=== PATIENT | male | born 1980 | race Caucasian/White ===

== ENCOUNTER 2020-12-22 18:14 | Observation (INO) ==
[2020-12-22] MEDS ORDERED: CYCLOBENZAPRINE HCL 10 MG TAB PO STA (20:20)
[2020-12-22] MEDS ORDERED: oxyCODONE HCL IR 5 MG TAB (IMMEDIATE RELEASE) PO STA (20:20)
--- NOTE | 2020-12-22 20:34 | Emergency Department Note ---
Impression & Plan Lumbar radiculopathy, Central stenosis of spinal canal ED Provider Note CHIEF COMPLAINT: Lower back pain HISTORY OF PRESENT ILLNESS: Michael Basilio is a 40 year old male with no significant past medical history who presents to the Emergency Department for evaluation of severe pain to his lower back which came on suddenly when he attempted to get up from bed around 1500 this afternoon. Prior to the time of onset today, the patient had gone for a 2 mile walk and then drove back to his house. He is unsure if he may have pulled a muscle while attempting to get out of his car but he denies suffering any other injuries or recent falls that may have lead to his symptoms. After the patient had laid down to rest and attempted to get back up to go to the bathroom, he suddenly developed the severe pain to his lower back which made him fall to the floor. The patient was unable to get up on his own secondary to his pain. His mother was home and placed a lidocaine patch on his back with minimal relief. As he was still unable to move, EMS was called and lifted him off the floor onto the litter and brought him to the ED for further evaluation. Currently, he rates his discomfort as a 10/10 which worsens with attempts of movement. He has not taken any medications other than the lidocaine patch. He denies pain radiating into his groin, buttocks or legs. He also denies numbness/tingling or weakness. He denies loss of continence of his bowels or bladder and he has been able to urinate without difficulty since his symptoms started. He denies any other acute complaints or pain to his head, neck, chest, abdomen, pelvis, upper back, BUE or BLE. REVIEW OF SYSTEMS: 10 systems were reviewed and were negative unless otherwise stated in HPI as above PHYSICAL EXAM: VITALS: Vitals are noted on the nurse's note and reviewed by myself. Vital signs stable. General: Laying flat in bed, appears uncomfortable Head: Normocephalic/atraumatic Neck: No mid-line cervical tenderness, ROM intact Resp: Good inspiratory effort on room air, lung sounds clear bilaterally CV: Mildly tachycardic rate, regular rhythm, peripheral pulses palpated Back: Thoracic spine non-tender, tender to palpation over the midline lumbar spine with mild edema, no obvious step-offs or deformities Abd: Soft, non-tender to palpation MSK: Holding legs in flexed position as extension exacerbates his pain, ROM intact but limited secondary to back pain. BLE Non-tender to palpation. Moving BUE without apparent pain or difficulty with strength 5/5 throughout, sensation intact throughout. Neuro: Awake, alert, interacting and answering questions appropriately Differential diagnosis includes muscular strain, fracture, metastatic disease, disc herniation, sciatica, epidural abscess, vertebral osteomyelitis, discitis, spinal epidural hematoma, cord compression, cauda equina/conus medullaris syndrome as well as others were entertained. EMERGENCY DEPARTMENT COURSE: Physical exam and history were performed. Nursing notes, EMR, and medication list were personally reviewed. Patient appears to have a sudden onset of severe pain to his lower back as described above. He was offered pain medication and was given a dose of oxycodone 10 mg and Flexeril 10 mg. CAT scan of the lumbar spine was obtained and reviewed by radiologist and myself as below. This was negative for acute lumbar spine fracture or subluxation. It did show mild disc space narrowing at L4-L5 with probable disc bulge as well as suspected central canal stenosis at L4-L5 likely moderate in degree. Upon reevaluation, the patient appeared to be in more significant pain since returning back from the CAT scan despite taking the oxycodone and Flexeril. He was then given a dose of IV Dilaudid 1 mg and IV Solu-Medrol 20 mg. I discussed the results of the CAT scan with him at bedside and then allowed him to rest to see if the additional medications would provide some relief. The patient was reevaluated and did appear to be resting more comfortably, however he was still having pain and had not yet been able to sit up or move at all from the prone position. After some time, he was given an additional dose of IV Dilaudid 1 mg, however he still continued with pain and was not able to get up from bed secondary to this. I did discuss this with my attending, Dr. Leiva and contacted the [facility] hospitalist group who agreed to evaluate the patient for ongoing management given his intractable back pain. The patient verbalizes understanding and agreement with the treatment plan. The chart was completed utilizing [employer] Voice Recognition Software. Grammatical errors, random word insertions, pronoun errors, and incomplete sentences are an occasional consequence of this system due to software limitations, ambient noise, and hardware issues. Any formal questions or concerns about the content, text, or information contained within the body of this dictation should be directly addressed to the provider for clarification. Past Med/Surg History Medical History (Updated 12/23/20 @ 02:39 by Reema Cordova MD) No significant medical problems Strabismus Surgical History (Updated 12/23/20 @ 02:32 by Moira Castillo PA-C) History of strabismus surgery Social History (Updated 12/23/20 @ 02:32 by Moira Castillo PA-C) Smoking Status: Never smoker Hx Alcohol Use: Yes Hx Substance Use: No Preferred Language: Portuguese Communication Ability: Effective Biometrics Head Required: No Beliefs That Will Affect Care: None Feels Safe at Home: Yes Safety Concerns: Feels Safe At This Time Assistive Devices: Glasses Allergies Allergies Allergy/AdvReac Type Severity Reaction Status Date / Time ibuprofen Allergy Intermediate Hives Verified 12/22/20 20:28 Home Meds Home Medications Medication Instructions Recorded Confirmed Vitamin Suppliment 1 tab PO DAILY 12/22/20 12/22/20 finasteride 1 mg tablet 1 mg PO DAILY 12/22/20 12/22/20 Results & Data (ED) Vital Signs Vital Signs - 24 hr 12/22/20 18:36 12/22/20 19:48 12/22/20 21:00 Temperature 37.0 C Temperature Source Oral Pulse Rate 111 H Pulse Rate [Finger] 90 106 H Pulse Rate from SpO2 Sensor Respiratory Rate 20 20 12 Respiratory Effort / Characteristics Non-Labored Respiratory Depth Normal Blood Pressure 135/78 Blood Pressure [Left Arm] 128/84 121/77 Blood Pressure Mean 97 Blood Pressure Mean [Left Arm] 98 91 Blood Pressure Position Sitting Pulse Oximetry 96 96 92 Oxygen Delivery Method Room Air Room Air Oxygen Flow Rate Sepsis Recent Fever Within 48 Hours No Sepsis New/Unexplained Change in Mental Status N/A Sepsis Action Taken by Nursing No Action Required 12/22/20 22:00 12/22/20 23:00 12/22/20 23:30 Temperature Temperature Source Pulse Rate 87 91 H Pulse Rate [Finger] 87 Pulse Rate from SpO2 Sensor 90 90 Respiratory Rate 13 16 15 Respiratory Effort / Characteristics Respiratory Depth Normal Blood Pressure 130/82 Blood Pressure [Left Arm] 114/71 Blood Pressure Mean 98 Blood Pressure Mean [Left Arm] 85 Blood Pressure Position Pulse Oximetry 95 95 89 L Oxygen Delivery Method Nasal Cannula Nasal Cannula Room Air Oxygen Flow Rate 2 2 Sepsis Recent Fever Within 48 Hours Sepsis New/Unexplained Change in Mental Status Sepsis Action Taken by Nursing 12/23/20 00:00 12/23/20 00:30 Temperature Temperature Source Pulse Rate 83 103 H Pulse Rate [Finger] Pulse Rate from SpO2 Sensor 86 101 H Respiratory Rate 17 21 Respiratory Effort / Characteristics Respiratory Depth Blood Pressure 138/80 132/88 Blood Pressure [Left Arm] Blood Pressure Mean 99 102 Blood Pressure Mean [Left Arm] Blood Pressure Position Pulse Oximetry 95 96 Oxygen Delivery Method Nasal Cannula Nasal Cannula Oxygen Flow Rate 2 2 Sepsis Recent Fever Within 48 Hours Sepsis New/Unexplained Change in Mental Status Sepsis Action Taken by Nursing Laboratory Data Result diagrams: 12/23/20 00:41 12/23/20 00:41 Lab Results 12/23/20 12/23/20 Range/Units 00:10 00:10 COVID-19 Eval Order Covid19 at [facility] SARS-CoV-2 (PCR) NEGATIVE (Negative) Administered Medications Enoxaparin Sodium (Enoxaparin Inj 40 Mg/0.4 Ml Syr) 40 mg SQ QAM ON LICENSE OF [facility] Stop: 01/22/21 08:59 Last Admin: 12/23/20 10:04 Dose: 40 mg Documented by: [id number] Sodium Chloride (Nss 1000ml) 1,000 mls @ 115 mls/hr IV .[id number] ON LICENSE OF [facility] Stop: 12/23/20 20:55 Last Admin: 12/23/20 04:53 Dose: 115 mls/hr Documented by: [id number] Acetaminophen (Ofirmev) 1,000 mg in 100 mls @ 400 mls/hr IV Q8H ON LICENSE OF [facility] Stop: 12/26/20 04:59 Last Infusion: 12/23/20 05:18 Dose: 0 mls/hr Documented by: [id number] Admin: 12/23/20 04:53 Dose: 400 mls/hr Documented by: [id number] Miscellaneous (Finasteride 1mg: Order Awaiting Action) 1 ea N/A QS ON LICENSE OF [facility] Stop: 01/22/21 07:59 Last Admin: 12/23/20 08:35 Dose: Not Given Documented by: [id number] Oxycodone HCl (Oxycodone Hcl Ir 5 Mg Tab (Immediate Release)) 5 mg PO Q4H PRN PRN Reason: MODERATE Pain (4,5,6) Stop: 01/06/21 03:31 Last Admin: 12/23/20 08:52 Dose: 5 mg Documented by: [id number] Discontinued Medications Cyclobenzaprine HCl (Cyclobenzaprine Hcl 10 Mg Tab) 10 mg PO NOW STA Stop: 12/22/20 20:21 Last Admin: 12/22/20 20:31 Dose: 10 mg Documented by: [id number] Hydromorphone HCl (Hydromorphone Inj 1 Mg/Ml Syringe) 1 mg IV NOW STA Stop: 12/22/20 21:38 Last Admin: 12/22/20 21:49 Dose: 1 mg Documented by: [id number] Hydromorphone HCl (Hydromorphone Inj 1 Mg/Ml Syringe) 1 mg IV NOW STA Stop: 12/22/20 23:03 Last Admin: 12/22/20 23:23 Dose: 1 mg Documented by: [id number] Dexamethasone 6 mg/ Syringe 1.5 mls @ 1 mls/min IV ONE ONE Stop: 12/23/20 00:42 Last Admin: 12/23/20 01:37 Dose: 1 mls/min Documented by: [id number] Methylprednisolone (Methylprednisolone 40 Mg/Ml Vial) 20 mg IV NOW STA Stop: 12/22/20 21:38 Last Admin: 12/22/20 21:59 Dose: 20 mg Documented by: [id number] Oxycodone HCl (Oxycodone Hcl Ir 5 Mg Tab (Immediate Release)) 10 mg PO NOW STA Stop: 12/22/20 20:21 Last Admin: 12/22/20 20:31 Dose: 10 mg Documented by: [id number] Imaging Data Radiologist's Impression: Lumbar Spine CT 12/22/20 20:20 CT lumbar spine wo con CLINICAL HISTORY: severe pain to mid lumbar spine COMPARISON STUDY: No previous studies for comparison. TECHNIQUE: Axial images of the lumbar spine were obtained without IV contrast. Sagittal and coronal reconstructions were viewed. Automated exposure control was utilized for the study. A dose lowering technique was utilized adhering to the principles of ALARA. FINDINGS: For purposes of numbering on this exam, the L5-S1 disc space is assigned to axial image 323 of 395. Alignment of the lumbar spine is anatomic. Vertebral body heights are maintained. There is no fracture. No osseous lesion is noted. Facet joints are intact. This exam is mildly compromised by motion artifact. Paravertebral soft tissues are unremarkable. There is mild disc space narrowing at L4-L5. The central canal and neural foramen are suboptimally assessed by CT. However, there is suspected central canal stenosis at L4-L5, likely moderate in degree. There is also narrowing of the lateral recesses at this level. Mild disc bulge L5-S1 is noted. IMPRESSION: 1. No acute lumbar spine fracture or subluxation. 2. Mild disc space narrowing at L4-L5 with probable disc bulge. Mild multilevel facet arthrosis. Suboptimal evaluation of the central canal and neural foramen given CT technique however suspected central canal stenosis at L4-L5, likely moderate in degree. MRI of the lumbar spine could be obtained for further evaluation. ACT 112: Negative or not required by law. Electronically signed by: Osvaldo Alvarez M.D. 12/22/2020 9:23 PM Discharge Plan Visit Data Chief Complaint: Back Injury/Pain ED Provider: Josué Leiva ED Midlevel Provider: Moira Castillo Discharge Problem: Lumbar radiculopathy, Central stenosis of spinal canal Patient Disposition: Admitted As Inpatient Discharge Instructions Interventions: ED Discharge Assessment Last Done: 12/23/20 02:00
--- NOTE | 2020-12-22 21:24 | CT Scan Report ---
CT lumbar spine wo con CLINICAL HISTORY: severe pain to mid lumbar spine COMPARISON STUDY: No previous studies for comparison. TECHNIQUE: Axial images of the lumbar spine were obtained without IV contrast. Sagittal and coronal r econstructions were viewed. Automated exposure control was utilized for the study. A dose lowering t echnique was utilized adhering to the principles of ALARA. FINDINGS: For purposes of numbering on this exam, the L5-S1 disc space is assigned to axial image 323 of 395. Alignment of the lumbar spine is anatomic. Vertebral body heights are maintained. There is n o fracture. No osseous lesion is noted. Facet joints are intact. This exam is mildly compromised by m otion artifact. Paravertebral soft tissues are unremarkable. There is mild disc space narrowing at L4 -L5. The central canal and neural foramen are suboptimally assessed by CT. However, there is suspecte d central canal stenosis at L4-L5, likely moderate in degree. There is also narrowing of the lateral recesses at this level. Mild disc bulge L5-S1 is noted. IMPRESSION: 1. No acute lumbar spine fracture or subluxation. 2. Mild disc space narrowing at L4-L5 with probable disc bulge. Mild multilevel facet arthrosis. Subo ptimal evaluation of the central canal and neural foramen given CT technique however suspected centra l canal stenosis at L4-L5, likely moderate in degree. MRI of the lumbar spine could be obtained for samantha garza evaluation. ACT 112: Negative or not required by law. Electronically signed by: Osvaldo Alvarez M.D. 12/22/2020 9:23 PM
[2020-12-22] MEDS ORDERED: HYDROmorphone INJ 1 MG/ML SYRINGE IV STA ×2 (21:37→23:02)
[2020-12-23] MEDS ORDERED: dexAMETHasone 6 MG in SYRINGE 0 ML IV ONE (00:41)
[2020-12-23 00:55] LABS: Basophils # (auto) 0.03 K/uL (0-0.2); Basophils % (auto) 0.2 %; Hematocrit (blood only) 44.8 % (42-52); Hemoglobin 16.2 g/dL (14.0-18.0); Immature Granulocytes # (auto) 0.01 K/uL (0.00-0.02); Immature Granulocytes % (auto) 0.1 %; Lymphocytes # (auto) 1.28 K/uL (1.2-3.4); Lymphocytes % (auto) 9.8 %; Mean Corpuscular Hemoglobin 32.1 pg (25-34); Mean Corpuscular Hgb Conc 36.2 g/dL (32-36); Mean Corpuscular Volume 88.7 fL (80-100); Mean Platelet Volume 10.6 fL (7.4-10.4); Monocytes # (auto) 0.06 K/uL (0.11-0.59); Monocytes % (auto) 0.5 %; Neutrophils # (auto) 11.68 K/uL (1.4-6.5); Neutrophils % (auto) 89.4 %; Platelet Count 293 K/uL (130-400); RDW Coefficient of Variation 12.6 % (11.5-14.5); RDW Standard Deviation 39.9 fL (36.4-46.3); Red Blood Count 5.05 M/uL (4.7-6.1); White Blood Count 13.06 K/uL (4.8-10.8)
--- NOTE | 2020-12-23 00:58 | History & Physical Report ---
Date of Service December 23, 2020 Assessment & Plan (1) Lumbar back pain: Plan: Mr. Basilio is an otherwise healthy 40 yo M here who came in for evaluation of sudden onset low back pain. - CT of L spine showing mild disc space narrowing at the L4-L5 level with probab le disc bulge; suspected moderate central canal stenosis; mild multilevel facet arthropathy. - L spine MRI ordered - Ortho spine consult placed - Decadron 6mg IV ordered on admission; continue 4mg IV q8 thereafter - cyclobenzaprine given in ED - Pain regimen: scheduled tylenol IV 1000mg q8; Oxycodone or Morphine prn for moderate pain, Dilaudid for severe pain (2) Leukocytosis: Plan: - WBC to 13 - etiology unclear: infectious vs. reactive - UA neg. COVID 19 neg. 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 Basilio is a 40 yo otherwise healthy male who presented to the [facility] ED for sudden onset low back pain. This morning he felt a sharp pain in the middle of his low back after getting out of his vehicle. He does have a car that sits low to the ground. The pain then improved - he was able to walk 2 miles across campus without too much trouble. When he went to have a bowel movement later in the afternoon, the pain came so unbearable he collapsed in the restroom. The pain is located centrally - ie not on either side of the spine. It does not radiate to the buttock or down either leg. He denies any weakness or numbness in either leg. No urine or fecal incontinence/retention. Nothing like this has never happened to him before - no previous injuries or surgeries to the low back. In the ED, he was was afebrile with normal vitals. WBC was elevated to 13 with neutrophil predominance. Coags WNL. CMP normal. T-bili 1.2, direct 0.2. UA benign. A cat scan of the lumbar spine was ordered, which showed mild disc space narrowing at the L4-L5 level with probable disc bulge; suspected moderate central canal stenosis; mild multilevel facet arthropathy. He was given cyclobenzaprine 10mg, oxycodone 10mg, methylprednisolone 20mg IV, and Dilaudid 2mg IV. Allergies Allergy/AdvReac Type Severity Reaction Status Date / Time ibuprofen Allergy Intermediate Hives Verified 12/22/20 20:28 Home Medications Medication Instructions Recorded Confirmed Type Vitamin Suppliment 1 tab PO DAILY 12/22/20 12/22/20 History finasteride 1 mg tablet 1 mg PO DAILY 12/22/20 12/22/20 History cyclobenzaprine 10 mg tablet 10 mg PO HS PRN #7 tab 12/23/20 Rx naproxen 500 mg tablet 500 mg PO BID PRN #20 tab 12/23/20 Rx Past Med/Surg History Medical History (Updated 12/23/20 @ 13:58 by Tod Augustin DO) No significant medical problems Strabismus Surgical History (Updated 12/23/20 @ 02:32 by Moira Castillo PA-C) History of strabismus surgery Social History (Updated 12/23/20 @ 02:32 by Moira Castillo PA-C) Smoking Status: Never smoker Hx Alcohol Use: Yes Hx Substance Use: No Preferred Language: Romansh Communication Ability: Effective Senior Electronics Engineer Required: No Beliefs That Will Affect Care: None Feels Safe at Home: Yes Safety Concerns: Feels Safe At This Time Assistive Devices: Glasses Physical Exam Constitutional: WD/WN, vitals as above + acute distress and cooperative Eyes: + anicteric sclerae ENMT: external ear and nose normal, oropharynx normal Neck: trachea midline Respiratory: normal respiratory effort, lungs clear to auscultation Cardiovascular: RRR, no murmur, no edema Heart Sounds: normal S1 and normal S2 Gastrointestinal (Abdomen): normal bowel sounds, soft, nontender, no hepatosplenomegaly Musculoskeletal: Patient laying flat on exam - he was unable to roll over or sit up for me to examine his back (secondary to pain). He had no saddle anesthesia. He was able to raise both his legs without radicular symptoms Skin: no rashes, warm and dry Neurologic: moves all extremities; no focal motor deficits Motor/Sensory: no sensory deficit Psychiatric: A+Ox3, euthymic affect Results & Data Results & Data ([place]) Vital Signs (Past 12 Hours) Vital Signs Temp Pulse Pulse Resp BP BP Pulse Ox 12/23/20 00:30 103 H 21 132/88 96 12/23/20 00:00 83 17 138/80 95 12/22/20 23:30 91 H 15 89 L 12/22/20 23:00 87 16 130/82 95 12/22/20 22:00 87 13 114/71 95 12/22/20 21:00 106 H 12 121/77 92 12/22/20 19:48 90 20 128/84 96 12/22/20 18:36 37.0 C 111 H 20 135/78 96 Supervising Physician Co-Signing Physician Notes Attending addendum: I have physically seen this patient, have supervised the medical residents activities, and agree with the H&P unless as otherwise noted. Assessment and Plan: Intractable low back pain/L4-5 disc herniation/moderate central canal stenosis/mild multilevel facet arthropathy- As noted on CT Order MRI L-spine Decadron 6 mg IV now then 4 mg IV every 8 hours Cyclobenzaprine given in ED- Acetaminophen 1 g IV every 8 hours as needed mild pain or fever Oxycodone 5 mg p.o. every 6 hours as needed moderate pain Morphine 4 mg IV every 3 hours as needed moderate pain Dilaudid 0.25 mg IV every 3 hours as needed severe pain Consult orthopedic spine surgery Remaining orders and notations as noted Resident Activity Tracking Resident Involvement: Resident Care Provided Care Provided: Adult Hospital Medicine
[2020-12-23 01:06] LABS: INR 1.1 (0.9-1.1); Partial Thromboplastin Ratio 1.1; Partial Thromboplastin Time 28.9 Seconds (21.0-31.0); Prothrombin Time 10.9 Seconds (9.0-12.0)
[2020-12-23 01:15] LABS: Albumin Level 4.2 gm/dl (3.4-5.0); BUN Creatinine Ratio 12.4 (10-20); Bilirubin Direct 0.2 mg/dl (0-0.2); Calcium 9.3 mg/dl (8.5-10.1); Creatinine Clr Calc Pharmacy 111.1 ml/min; Est GFR (African American) 102.4 ml/min; Est GFR (Non-African American) 88.4 ml/min
[2020-12-23 01:17] LABS: Bilirubin,Total 1.2 mg/dl (0.2-1); Globulin 4.1 gm/dl (2.5-4.0); Total Protein 8.3 gm/dl (6.4-8.2)
[2020-12-23 01:58] LABS: Appearance Urine Clear (Clear); Bilirubin Urine Negative (Negative); Blood Urine Negative (Negative); Color Urine Dark Yellow; Glucose Urine UA Negative (Negative); Ketones Urine 1+ (Negative); Leukocyte Esterase Urine Negative (Negative); Nitrite Urine Negative (Negative); Protein Urine Negative (Negative); Specific Gravity Urine 1.025 (1.000-1.030); Urobilinogen Urine Negative (Negative); pH Urine 7.5 (4.5-7.5)
[2020-12-23] MEDS ORDERED: ONDANSETRON INJ 2 MG/ML 2 ML VIAL IV PRN (03:32)
[2020-12-23] MEDS ORDERED: HYDROmorphone INJ 1 MG/ML SYRINGE IV PRN (03:32)
[2020-12-23] MEDS ORDERED: MoRPHine SULFATE 2 MG/ML CARP IV PRN (03:32)
[2020-12-23] MEDS ORDERED: oxyCODONE HCL IR 5 MG TAB (IMMEDIATE RELEASE) PO PRN (03:32)
[2020-12-23] MEDS ORDERED: FLUARIX QUADRIVALENT 0.5 ML SYR IM ONE (04:16)
[2020-12-23] MEDS: ACETAMINOPHEN 1,000 MG/100 ML VIAL IV SCH ×2 (04:53→13:46)
[2020-12-23] MEDS: SODIUM CHLORIDE 0.9% 1000ML 1,000 ML IV SCH ×2 (04:53→13:46)
[2020-12-23] MEDS: oxyCODONE HCL IR 5 MG TAB (IMMEDIATE RELEASE) PO PRN (08:52)
--- NOTE | 2020-12-23 09:41 | Magnetic Resonance Report ---
LUMBAR SPINE MRI HISTORY: low back pain, concern for disc herniation TECHNIQUE: Multiplanar multisequence MRI of the lumbar spine was performed without the use of contras t. COMPARISON: Lumbar spine CT 12/22/2020. FINDINGS: For the purpose of the report the L5-S1 disc space will be located on axial image of . No fracture or subluxation within the lumbar spine. Normal marrow signal intensity seen throughout th e visualized osseous structures. Moderate disc space narrowing at L4-5. The conus terminates at the L 1 level. Paravertebral soft tissues are unremarkable. Mild facet degenerative changes at L4-5 and L5- S1. L1-L2: No significant central canal or neural foraminal narrowing. L2-L3: No significant central canal or neural foraminal narrowing. L3-L4: No significant central canal or neural foraminal narrowing. L4-L5: Broad-based posterior disc protrusion with ligamentum and facet hypertrophy resulting in moder ate central canal narrowing. No significant neural foraminal narrowing. The disc protrusion abuts the bilateral transiting L5 nerve roots. L5-S1: No significant central canal or neural foraminal narrowing. IMPRESSION: Broad-based posterior disc protrusion at L4-5 resulting in moderate central canal narrowing. ACT 112: Negative or not required by law. Electronically signed by: James Nick M.D. 12/23/2020 9:40 AM
[2020-12-23] MEDS ORDERED: dexAMETHasone 4 MG in SYRINGE 0 ML IV SCH (10:00)
[2020-12-23] MEDS: ENOXAPARIN INJ 40 MG/0.4 ML SYR SQ SCH (10:04)
--- NOTE | 2020-12-23 11:37 | Hospitalist Progress Note ---
Date of Service December 23, 2020 Assessment & Plan Admission and Anticipated Discharge Date Admission Date: December 23, 2020 Results & Data Results & Data ([facility]) Vital Signs (Past 12 Hours) Vital Signs Temp Pulse Pulse Resp BP BP Pulse Ox 12/23/20 08:00 37 C 110 H 16 160/93 H 97 12/23/20 04:10 36.7 C 92 H 18 126/78 98 12/23/20 04:00 16 126/78 95 12/23/20 02:17 16 137/79 95 12/23/20 00:30 103 H 21 132/88 96 12/23/20 00:00 83 17 138/80 95
--- NOTE | 2020-12-23 13:59 | Discharge Summary ---
Date of Service December 23, 2020 Admission HPI Per Admitting Provider Mr. Basilio is a 40 yo otherwise healthy male who presented to the [facility] ED for sudden onset low back pain. This morning he felt a sharp pain in the middle of his low back after getting out of his vehicle. He does have a car that sits low to the ground. The pain then improved - he was able to walk 2 miles across campus without too much trouble. When he went to have a bowel movement later in the afternoon, the pain came so unbearable he collapsed in the restroom. The pain is located centrally - ie not on either side of the spine. It does not radiate to the buttock or down either leg. He denies any weakness or numbness in either leg. No urine or fecal incontinence/retention. Nothing like this has never happened to him before - no previous injuries or surgeries to the low back. In the ED, he was was afebrile with normal vitals. WBC was elevated to 13 with neutrophil predominance. Coags WNL. CMP normal. T-bili 1.2, direct 0.2. UA benign. A cat scan of the lumbar spine was ordered, which showed mild disc space narrowing at the L4-L5 level with probable disc bulge; suspected moderate central canal stenosis; mild multilevel facet arthropathy. He was given cyclobenzaprine 10mg, oxycodone 10mg, methylprednisolone 20mg IV, and Dilaudid 2mg IV. Principal Diagnosis Biomechanical low back pain, incidentally noted L4-5 disc disease Discharge Exam In general he is awake and alert pleasant no distress. HEENT normocephalic atraumatic mucous membranes moist. Breathing unlabored no accessory muscle use good effort. Skin shows no rashes no pallor or icterus. He shows no focal neuro deficits or leg weakness. Biomechanically/osteopathic/musculoskeletalhis right-sided pelvic stabilizing musculature in the region of piriformis is very high in tone, may be slightly tender, decreased range of motionparticularly when compared to the left. Inhibitory pressure/LAS as well as post isometric re laxation/muscle energy done with some improvement in range of motion. Patient tolerated well. Translated this into stretches that I taught him at the bedside additionally. Mental status shows good recent and remote recall normal mood and affect good judgment and insight. Discharge Data Allergies Allergy/AdvReac Type Severity Reaction Status Date / Time ibuprofen Allergy Intermediate Hives Verified 12/22/20 20:28 Consultations 12/23/20 00:53 Consult Orthopedic Surgery Routine 12/23/20 01:10 ED Decision to Admit Stat Ordered Studies 12/22/20 20:20 CT lumbar spine wo con Stat 12/23/20 00:53 MR lumbar spine wo con Routine Hospital Course (1) Lumbar back pain: Although he has radiographic evidence of L4-5 disc disease with a degree of nerve impingement, he has absolutely no radicular symptoms, and his symptoms are all local, exam fairly consistent with a lumbosacral strain centering on his right piriformis. He has improved quite significantly overnight with his pain, and feels well enough to go home. Stretches outlined, OMT as above. Would send home on Naprosyn twice daily (discussed his ibuprofen allergyhe tolerates Naprosyn fine) at first scheduled, then wean as possible down to as needed and then stop. Send on cyclobenzaprine 10 mg nightly (outlined drowsiness) as needed. Continue stretches. If he does not show good/steady improvement, can follow-up in [facility] medicine office for ongoing OMT. (2) Central stenosis of spinal canal: Has some disc disease with L4-5, causing a degree of radiographic impingement of her nerve root at L5. However, he has no radicular symptoms to show for this. At time of discharge summary, awaiting formal input from orthopedics, but highly doubt intervention would be necessary. (3) Somatic dysfunction of pelvis region: OMT as above, stretch as outlined Total Time Total Time Spent Total Time Spent (In Minutes): Less than 30 Discharge Plan Discharge Items Patient Disposition: Home - Self-Care Reason For Visit: BACK PAIN Discharge Diagnosis: back pain - see below Activity: Resume your previous activity Activity Comment: see below Non-emergency contact: Primary Care Provider Call non-emergency contact if: you have any medication questions, your symptoms worsen and your pain is not controlled Follow-up/Referrals: Adelfo Dorsey [Primary Care Provider] - Diet: Regular Addtl Attending Provider Instructions: back pain -while your MRI does show some disc disease (see below for more detail) your sym ptoms really don't fit with what we would expect you to feel if the disc disease was the culprit. It is very common to incidentally see disc bulges/etc when we check imaging on people's low backs (it's a pretty reasonable guess to say that about 20% of people will have some degree of disc disease on imaging whether it relates to symptoms or not) -the back pain you were feeling appears much more related to muscle strain - that can absolutely hurt like crazy (and it did) but usually has more of a diffuse "in my low back" nature that is much harder to pinpoint -most of the time, these strain patterns center on the stabilizer muscles in our pelvis - most commonly piriformis (although gluteus minimus or other similar muscles can at times be the culprit as well) -- these muscles will commonly be strained because they are pretty small for the job they're made to do, they run horizontal and gravity runs vertical, and they have a lot of force put across them by the leverage caused by the "long lever" that is our leg -- ie because of all of that, it would be very plausible that getting out of your car and a little "bad luck" could easily lead to a strain like this. -fortunately it looks like things are already getting better - typically in situations like this they do -we'll have you continue with an anti-inflammatory (naproxen) and a muscle relaxant (cyclobenzaprine) to help control the symptoms -----naproxen is an anti-inflammatory -- for now we'll have you take it twice a day routinely - but as this gets better start to back it of to twice a day as needed, and then work off of it. because people get better at different rates, you might need it twice a day for a few days and that's it, or you might need it for a week or two. if it's something that we can't seem to get rid of because the pain is still bad, however, that's where we'll definitely want to have people working on your back/biomechanics to help get the "root cause" better -----cyclobenzaprine is a muscle relaxant - as we discussed, most pill muscle relaxants don't do the best job of actually relaxing the tight/spastic muscles, but they do make your brain care less about the spasm pain. between this, and the side effect of making you groggy, they serve a good role for bedtime use until the spasms get better and the pain settles out. you can take it up to three times a day while things are still bad, but definitely only if you can afford to be groggy (ie don't do anything important or physically dangerous, don't drive, etc) -as far as actually getting the spasms better: fortunately it already seems like things are showing improvement. we stretched/worked on the area some here, which should help as well. at home, do the two stretches we demonstrated 3 times a day to keep things loose and getting better. the first is sitting upright with your right leg bent, left leg straight. push your right knee across your body to the left so that you can feel it pulling across your buttock - and then push back against yourself. after about 5 seconds of pushing - then relax and stretch your leg further across your body to the left. do about 3-4 repetitions of this for each stretching session. the second stretch is even simpler - lay on your back and pull your right knee to your chest. try to straighten your leg pushing back against your arms/hands for about 5 seconds - and then once you've pushed for about 5 seconds, relax your leg and pull your knee further to your chest. additionally, if you look for YouTube videos on "piriformis stretch" it's a common enough muscle group to get in trouble that you'll see a myraid of additional stretching techniques you can utilize -muscle strain/spasm also tends to have what we call "gelling" -- meaning that while it hurts to move things, it usually gets stiffer the less we move, which then makes moving the next time even worse. to that end, trying to (gently) keep moving fairly frequently will help to keep things from getting stiffer --if you're not showing good improvement over the next few days, many of our resident physicians in [facility] are DOs who would be more than adept at picking up your situation and continuing to work on your back. since this is likely to show improvement with time/stretches, then maybe by call the office to get set up with someone to continue to work on your back L4/5 disc bulge -your MRI does show a degree of structural disease in your low back - but as we discussed/above noted, this is actually a quite common incidental finding -because the main part of the disc disease is at L4/5 and would impinge your L5 nerve roots, generally the majority of people symptomatic from this kind of problem would feel it much more going down your legs and into your foot, not pain in the low back itself. this is something that could possibly cause you problems down the road, but also might never bother you -if you search on google images "dermatome map" you'll see the "wiring" so you can know where you would be feeling it if the disc was causing you problems - it would be in the area of L5 as it maps out down your leg and into your foot -should you ever develop those symptoms, then we can look at the specific things that help with disc bulge/pinched nerves (things like injections or surgeries) but fortunately those do not look necessary at this time -generally speaking, regular exercise and maintaining a healthy weight will allow for less stress/strain on your low back and make it less likely that these things will ever be a problem Stand-Alone Forms: [facility], Smoking Cessation Medications and DC Order Prescriptions: New naproxen 500 mg tablet 500 mg PO BID PRN (Reason: pain) Qty: 20 RF: 0 cyclobenzaprine 10 mg tablet 10 mg PO HS PRN (Reason: muscle spasm) Qty: 7 RF: 0 Continued finasteride 1 mg Tablet 1 mg PO DAILY RF: 0 Vitamin Suppliment 1 tab PO DAILY RF: 0 Discharge Orders: Discharge Order (Routine); Ordered 12/23/20 Ordered By: Tod Augustin Admission Data Admit Date/Time: 12/23/20 00:39 Attending Provider: Tod Augustin Admit Provider: Reema Cordova Primary Care Provider: Adelfo Dorsey Other Providers: Rome Ceron ; Felton Morel Other Interventions: Discharge Summary Assessment (RN) Last Done: 12/23/20 13:33 Coding Level of Care Code 25014 OBS Care - Discharge Diagnoses Lumbar back pain M54.50 Central stenosis of spinal canal M48.00 Somatic dysfunction of pelvis region M99.05 CPT Codes Musculoskeletal - Musculoskeletal: 90[address] Tr 1-2 Body regions ([id number])
[2020-12-23] MEDS ORDERED: NAPROXEN 250 MG TAB PO STA (14:04)
[2020-12-23 14:07] LABS: Basophils # (auto) 0.01 K/uL (0-0.2); Basophils % (auto) 0.1 %; Hematocrit (blood only) 49.7 % (42-52); Hemoglobin 17.7 g/dL (14.0-18.0); Immature Granulocytes # (auto) 0.02 K/uL (0.00-0.02); Immature Granulocytes % (auto) 0.2 %; Lymphocytes # (auto) 1.58 K/uL (1.2-3.4); Lymphocytes % (auto) 15.1 %; Mean Corpuscular Hemoglobin 32.5 pg (25-34); Mean Corpuscular Hgb Conc 35.6 g/dL (32-36); Mean Corpuscular Volume 91.2 fL (80-100); Mean Platelet Volume 10.4 fL (7.4-10.4); Monocytes # (auto) 0.25 K/uL (0.11-0.59); Monocytes % (auto) 2.4 %; Neutrophils # (auto) 8.61 K/uL (1.4-6.5); Neutrophils % (auto) 82.2 %; Platelet Count 290 K/uL (130-400); RDW Coefficient of Variation 12.7 % (11.5-14.5); RDW Standard Deviation 41.8 fL (36.4-46.3); Red Blood Count 5.45 M/uL (4.7-6.1); White Blood Count 10.47 K/uL (4.8-10.8)
--- NOTE | 2020-12-23 14:12 | Hospitalist Progress Note ---
Date of Service December 23, 2020 Assessment & Plan (1) Lumbar back pain: Plan: Although he has radiographic evidence of L4-5 disc disease with a degree of nerve impingement, he has absolutely no radicular symptoms, and his symptoms are all local, exam fairly consistent with a lumbosacral strain centering on his right piriformis. He has improved quite significantly overnight with his pain, and home was considered, but unfortunately with ambulation he still was brought to the floor doubled over with pain/spasms. To that end, we will keep her symptom controlmag sulfate 4 g IV x1, scheduled Tylenol, scheduled Naprosyn, Valium at bedtime, ongoing OMT, PT/OT eval and treat. (2) Central stenosis of spinal canal: Plan: Has some disc disease with L4-5, causing a degree of radiographic impingement of her nerve root at L5. However, he has no radicular symptoms to show for this. At time of discharge summary, awaiting formal input from orthopedics, but highly doubt intervention would be necessary. (3) Somatic dysfunction of pelvis region: Plan: OMT as above, stretch as outlined Admission and Anticipated Discharge Date Admission Date: December 23, 2020 Subjective Back painwith the "small of my back" does not radiate down legs at all. Started after getting out of his carinitially was pretty bad, then as he walked it loosened, and then after sitting for a while it really locked down again, to the point that whenever he tried to even get up he ended up on the floor in severe pain and spasms. Review of Systems Review of Systems: All systems reviewed & are unremarkable except as noted in HPI & below Physical Exam Physical Exam: In general he is awake and alert pleasant no distress. HEENT normocephalic atraumatic mucous membranes moist. Breathing unlabored no accessory muscle use good effort. Skin shows no rashes no pallor or icterus. He shows no focal neuro deficits or leg weakness. Biomechanically/osteopathic/musculoskeletalhis right-sided pelvic stabilizing musculature in the region of piriformis is very high in tone, may be slightly tender, decreased range of motionparticularly when compared to the left. Inhibitory pressure/LAS as well as post isometric relaxation/muscle energy done with some improvement in range of motion. Patient tolerated well. Translated this into stretches that I taught him at the bedside additionally. Mental status shows good recent and remote recall normal mood and affect good judgment and insight. Results & Data Results & Data ([facility]) Vital Signs (Past 12 Hours) Vital Signs Temp Pulse Resp BP BP Pulse Ox 12/23/20 13:33 98.4 F 114 H 18 160/89 H 99 12/23/20 08:00 98.4 F 114 H 18 160/89 H 99 12/23/20 04:10 98.1 F 92 H 18 126/78 98 12/23/20 04:00 16 126/78 95 12/23/20 02:17 16 137/79 95 PG Care Time/CCT Total # of Minutes Spent Total Time Spent with Patient: Total time spent is greater than 50% in coordination of care (as documented) at patient's floor/unit and/or counseling patient: Coding Level of Care Code 85962 Subseq Obs Care Lvl 3 Diagnoses Lumbar back pain M54.50 Central stenosis of spinal canal M48.00 Somatic dysfunction of pelvis region M99.05 CPT Codes Musculoskeletal - Musculoskeletal: 08554 Osteo Kike Tr 1-2 Body regions ([id number])
[2020-12-23] MEDS: MAGNESIUM SULFATE / D5W 1 GM/100 ML BAG IV SCH ×4 (14:23→20:20)
[2020-12-23] MEDS: ACETAMINOPHEN 325 MG TAB PO SCH ×2 (17:01→20:21)
--- NOTE | 2020-12-23 19:41 | Billing Data ---
Date of Service December 23, 2020 Coding Level of Care Code INT OBSERVATION CARE 70M LVL 3
[2020-12-23] MEDS: NAPROXEN 250 MG TAB PO SCH (20:20)
[2020-12-23] MEDS ORDERED: diazePAM 5 MG TABLET PO SCH (21:00)
[2020-12-24] MEDS: oxyCODONE HCL IR 5 MG TAB (IMMEDIATE RELEASE) PO PRN ×2 (06:33→14:00)
--- NOTE | 2020-12-24 08:07 | Hospitalist Progress Note ---
Date of Service December 24, 2020 Assessment & Plan Admission and Anticipated Discharge Date Admission Date: December 23, 2020 Results & Data Results & Data ([facility]) Vital Signs (Past 12 Hours) Vital Signs Temp Pulse Resp BP Pulse Ox 12/24/20 07:27 36.8 C 78 16 123/68 93 12/23/20 22:31 36.7 C 77 18 110/61 91
[2020-12-24] MEDS: NAPROXEN 250 MG TAB PO SCH (09:02)
[2020-12-24] MEDS: ACETAMINOPHEN 325 MG TAB PO SCH ×2 (09:02→14:50)
[2020-12-24] MEDS: ENOXAPARIN INJ 40 MG/0.4 ML SYR SQ SCH (09:03)
--- NOTE | 2020-12-24 15:04 | Discharge Summary ---
Date of Service December 24, 2020 Admission HPI Per Admitting Provider Mr. Basilio is a 40 yo otherwise healthy male who presented to the [facility] ED for sudden onset low back pain. This morning he felt a sharp pain in the middle of his low back after getting out of his vehicle. He does have a car that sits low to the ground. The pain then improved - he was able to walk 2 miles across campus without too much trouble. When he went to have a bowel movement later in the afternoon, the pain came so unbearable he collapsed in the restroom. The pain is located centrally - ie not on either side of the spine. It does not radiate to the buttock or down either leg. He denies any weakness or numbness in either leg. No urine or fecal incontinence/retention. Nothing like this has never happened to him before - no previous injuries or surgeries to the low back. In the ED, he was was afebrile with normal vitals. WBC was elevated to 13 with neutrophil predominance. Coags WNL. CMP normal. T-bili 1.2, direct 0.2. UA benign. A cat scan of the lumbar spine was ordered, which showed mild disc space narrowing at the L4-L5 level with probable disc bulge; suspected moderate central canal stenosis; mild multilevel facet arthropathy. He was given cyclobenzaprine 10mg, oxycodone 10mg, methylprednisolone 20mg IV, and Dilaudid 2mg IV. Principal Diagnosis Lumbar back pain Discharge Exam GENERAL: A&Ox3. NAD. CHEST/LUNGS: CTAB A/P. No crackles, wheezes, rales, ronchi. HEART: RRR. No m/g/r. No carotid bruits. EXTREMITIES: No cyanosis, no clubbing, no edema SKIN: Warm and dry. No rashes or lesions. Discharge Data Allergies Allergy/AdvReac Type Severity Reaction Status Date / Time ibuprofen Allergy Intermediate Hives Verified 12/22/20 20:28 Consultations 12/23/20 01:10 ED Decision to Admit Stat Ordered Studies 12/22/20 20:20 CT lumbar spine wo con Stat 12/23/20 00:53 MR lumbar spine wo con Routine Hospital Course (1) Lumbar back pain: Lumbar back pain: Although he has radiographic evidence of L4-5 disc disease with a degree of nerve impingement, he has absolutely no radicular symptoms, and his symptoms are all local, exam fairly consistent with a lumbosacral strain centering on his right piriformis. He has improved quite significantly overnight with his pain, and home was considered, but unfortunately with ambulation he still was brought to the floor doubled over with pain/spasms. To that end, kept overnight for symptom controlmag sulfate 4 g IV x1, scheduled Tylenol, scheduled Naprosyn, Valium at bedtime, ongoing OMT, PT/OT eval and treat. On day of DC significantly improved, though did report some intermittent spasms. Discharge with naproxen 500mg BID and muscle relaxant for home. Central stenosis of spinal canal: Has some disc disease with L4-5, causing a degree of radiographic impingement of her nerve root at L5. However, he has no radicular symptoms to show for this. Can consider ortho referral as outpatient if he does develop radicular symptoms. Somatic dysfunction of pelvis region: OMT as above, stretch as outlined (2) Central stenosis of spinal canal: (3) Somatic dysfunction of pelvis region: Total Time Total Time Spent Total Time Spent (In Minutes): <30 Discharge Plan Discharge Items Patient Disposition: Home - Self-Care Reason For Visit: BACK PAIN Discharge Diagnosis: back pain - see below Activity: Resume your previous activity Activity Comment: see below Non-emergency contact: Primary Care Provider Call non-emergency contact if: you have any medication questions, your symptoms worsen and your pain is not controlled Follow-up/Referrals: Adelfo Dorsey [Primary Care Provider] - 12/31/20 9:50 am (With Dr Rose ) Kimani Oden DO [Resident] - Diet: Regular Addtl Attending Provider Instructions: back pain -while your MRI does show some disc disease (see below for more detail) your symptoms really don't fit with what we would expect you to feel if the disc disease was the culprit. It is very common to incidentally see disc bulges/etc when we check imaging on people's low backs (it's a pretty reasonable guess to say that about 20% of people will have some degree of disc disease on imaging whether it relates to symptoms or not) -the back pain you were feeling appears much more related to muscle strain - that can absolutely hurt like crazy (and it did) but usually has more of a diffuse "in my low back" nature that is much harder to pinpoint -most of the time, these strain patterns center on the stabilizer muscles in our pelvis - most commonly piriformis (although gluteus minimus or other similar muscles can at times be the culprit as well) -- these muscles will commonly be strained because they are pretty small for the job they're made to do, they run horizontal and gravity runs vertical, and they have a lot of force put across them by the leverage caused by the "long lever" that is our leg -- ie because of all of that, it would be very plausible that getting out of your car and a little "bad luck" could easily lead to a strain like this. -fortunately it looks like things are already getting better - typically in situations like this they do -we'll have you continue with an anti-inflammatory (naproxen) and a muscle relaxant (cyclobenzaprine) to help control the symptoms -----naproxen is an anti-inflammatory -- for now we'll have you take it twice a day routinely - but as this gets better start to back it of to twice a day as needed, and then work off of it. because people get better at different rates, you might need it twice a day for a few days and that's it, or you might need it for a week or two. if it's something that we can't seem to get rid of because the pain is still bad, however, that's where we'll definitely want to have people working on your back/biomechanics to help get the "root cause" better -----cyclobenzaprine is a muscle relaxant - as we discussed, most pill muscle relaxants don't do the best job of actually relaxing the tight/spastic muscles, but they do make your brain care less about the spasm pain. between this, and the side effect of making you groggy, they serve a good role for bedtime use until the spasms get better and the pain settles out. you can take it up to three times a day while things are still bad, but definitely only if you can afford to be groggy (ie don't do anything important or physically dangerous, don't drive, etc) -as far as actually getting the spasms better: fortunately it already seems like things are showing improvement. we stretched/worked on the area some here, which should help as well. at home, do the two stretches we demonstrated 3 times a day to keep things loose and getting better. the first is sitting upright with your right leg bent, left leg straight. push your right knee across your body to the left so that you can feel it pulling across your buttock - and then push back against yourself. after about 5 seconds of pushing - then relax and stretch your leg further across your body to the left. do about 3-4 repetitions of this for each stretching session. the second stretch is even simpler - lay on your back and pull your right knee to your chest. try to straighten your leg pushing back against your arms/hands for about 5 seconds - and then once you've pushed for about 5 seconds, relax your leg and pull your knee further to your chest. additionally, if you look for YouTube videos on "piriformis stretch" it's a common enough muscle group to get in trouble that you'll see a myraid of additional stretching techniques you can utilize -muscle strain/spasm also tends to have what we call "gelling" -- meaning that while it hurts to move things, it usually gets stiffer the less we move, which t hen makes moving the next time even worse. to that end, trying to (gently) keep moving fairly frequently will help to keep things from getting stiffer --if you're not showing good improvement over the next few days, many of our resident physicians in [facility] are DOs who would be more than adept at picking up your situation and continuing to work on your back. since this is likely to show improvement with time/stretches, then maybe by call the office to get set up with someone to continue to work on your back L4/5 disc bulge -your MRI does show a degree of structural disease in your low back - but as we discussed/above noted, this is actually a quite common incidental finding -because the main part of the disc disease is at L4/5 and would impinge your L5 nerve roots, generally the majority of people symptomatic from this kind of problem would feel it much more going down your legs and into your foot, not pain in the low back itself. this is something that could possibly cause you problems down the road, but also might never bother you -if you search on google images "dermatome map" you'll see the "wiring" so you can know where you would be feeling it if the disc was causing you problems - it would be in the area of L5 as it maps out down your leg and into your foot -should you ever develop those symptoms, then we can look at the specific things that help with disc bulge/pinched nerves (things like injections or surgeries) but fortunately those do not look necessary at this time -generally speaking, regular exercise and maintaining a healthy weight will allow for less stress/strain on your low back and make it less likely that these things will ever be a problem Pending Studies at Discharge: No Stand-Alone Forms: My [facility] [employer], Work/School Release, Smoking Cessation Medications and DC Order Prescriptions: New naproxen 500 mg tablet 500 mg PO BID PRN (Reason: pain) Qty: 20 RF: 0 cyclobenzaprine 10 mg tablet 10 mg PO HS PRN (Reason: muscle spasm) Qty: 7 RF: 0 Continued finasteride 1 mg Tablet 1 mg PO DAILY RF: 0 Vitamin Suppliment 1 tab PO DAILY RF: 0 Discharge Orders: Discharge Order (Routine); Ordered 12/24/20 Ordered By: Woody Miller Admission Data Admit Date/Time: 12/23/20 00:39 Attending Provider: Tod Augustin Admit Provider: Reema Cordova Primary Care Provider: Adelfo Dorsey Other Providers: Felton Morel Other Interventions: Discharge Summary Assessment (RN) Last Done: 12/23/20 13:33 Supervising Physician Co-Signing Physician Notes I personally examined the patient and verified all eaton points of history and exam, discussed case, and agree with decision making with Dr Restrepo Feeling better. Still has occasional spasms, obviously does not feel great, but definitely better than before. Mother presentupdated the best my ability and to her satisfaction as well. Patient feels good to go home. Vitals noted, in general he is awake and alert pleasant no distress. HEENT normocephalic atraumatic mucous membranes moist. Breathing unlabored no accessory muscle use good effort. Skin shows no rashes no pallor or icterus. Neuro without focal deficits. Biomechanical back painstretches, conservative care, OMT done yesterday, can follow-up in the office for further OMT if needed. Stable for home. Otherwise as above. L4-5 disc bulgeno radicular symptoms. With hindsight this is an incidental finding. Stable for home. otherwise as above Resident Activity Tracking Resident Involvement: Resident Care Provided Care Provided: Adult Hospital Medicine
--- NOTE | 2020-12-24 16:25 | Billing Data ---
Date of Service December 24, 2020 Coding Level of Care Code 32256 OBS Care - Discharge
== END 2020-12-24 17:36 | disposition home or self-care (01) ==
LOC: EDINP 18:14 → ED 18:14 → SUATTDRO 12-23 00:39 → EDINP 12-23 02:00 → 3N 12-23 16:34